=== PATIENT | female | born 1980 | race African-American/Black ===

== ENCOUNTER 2018-10-20 16:22 | Emergency (ER) | payer OTHER ==
--- NOTE | 2018-10-20 16:54 | PDOC ---
Rapid Medical Evaluation Time Seen by Provider: 10/20/18 16:54 Medical Evaluation: Allergies Allergy/AdvReac Type Severity Reaction Status Date / Time No Known Allergies Allergy Verified 10/20/18 16:53 10/20/18 16:54 Chief complaint: Weakness, near syncope. Dx with influenza, started Tamiflu Wednesday. Pertinent physical exam findings: Alert, oriented, no distress. Clear lungs. I have ordered the following: None. Patient will proceed to the ED for further evaluation. Discharge Disposition - Diagnosis Influenza - Referrals - Patient Instructions - Post Discharge Activity
[2018-10-20 16:56] VITALS: BP 123/76; TEMP 100.2
[2018-10-20] MEDS ORDERED: ACETAMINOPHEN 500 MG TABLET (FP) PO ONE (19:41)
[2018-10-20] MEDS ORDERED: DEXAMETHASONE 4 MG TABLET (FP) PO ONE (19:41)
--- NOTE | 2018-10-20 20:05 | PDOC ---
History of Present Illness - General Chief Complaint: Respiratory Stated Complaint: SORE THROAT Time Seen by Provider: 10/20/18 16:54 History Source: Patient Exam Limitations: No Limitations - History of Present Illness Initial Comments: 10/20/18 20:01 HISTORY OF PRESENT ILLNESS: 38-year-old woman past medical history presents emergency department for evaluation of flulike symptoms for the past 3 days. Patient was [facility] and [facility] was diagnosed with influenza and started on Tamiflu. Patient reports the sore throat is gotten worse she denies increased faculty swallowing. Patient denies any change in her voice. Patient reports difficult time swallowing and is result his only had liquid oral intake over the past 24 hours. She denies any nausea vomiting or diarrhea. No recent travel or sick contacts. PAST MEDICAL HISTORY: Denies past medical history SURGICAL HISTORY: Denies ALLERGIES: No known drug allergies REVIEW OF SYSTEMS General/Constitutional: +fever. Denies weakness, weight change. HEENT: Denies change in vision. Denies ear pain or discharge. +sore throat. Cardiovascular: Denies chest pain or shortness of breath. Respiratory: Moist productive cough. Denies wheezing, or hemoptysis. Gastrointestinal: Denies nausea, vomiting, diarrhea or constipation. Denies rectal bleeding. Genitourinary: Denies dysuria, frequency, or change in urination. Musculoskeletal: +myalgias. Denies neck or back pain. Skin and breasts: Denies rash or easy bruising. Neurologic: Denies headache, vertigo, loss of consciousness, or loss of sensation. Psychiatric: Denies depression or anxiety. Endocrine: Denies increased thirst. Denies abnormal weight change. Hematologic/Lymphatic: Denies anemia, easy bleeding, or history of blood clots. Allergic/Immunologic: Denies hives or skin allergy. Denies latex allergy. PHYSICAL EXAM General Appearance: Well-appearing, appropriately dressed. No apparent distress , no intoxication. HEENT: EOMI, PERRLA, normal voice, TMs retracted bilaterally. No conjunctival pallor. No photophobia, scleral icterus. Oropharynx erythematous without lesions (+)exudate. Cobblestoning noted in the posterior. No nasal discharge present. Neck: Supple. Trachea midline. No tenderness, rigidity, carotid bruit, stridor , or thyromegaly. Nontender anterior cervical lymphadenopathy present. Respiratory/Chest: Lungs CTAB. No shortness of breath, chest tenderness, respiratory distress, accessory muscle use. No crackles, rales, rhonchi, stridor , wheezing, dullness Cardiovascular: RRR. S1, S2. No JVD, murmur, bradycardia, tachycardia. Vascular Pulses: Dorsalis-Pedis (R): 2+, Dorsalis-Pedis (L): 2+ Gastrointestinal/Abdominal: Normal bowel sounds. Abdomen soft, non-distended. No tenderness or rebound tenderness. No organomegaly, pulsatile mass, guarding, hernia, hepatomegaly, splenomegaly. Musculoskeletal/Extremities: Normal inspection. FROM of all extremities, normal capillary refill. Pelvis Stable. No CVA tenderness. No tenderness to extremities, pedal edema, swelling, erythema or deformity. Integumentary: Appropriate color, dry, warm. 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 Fully oriented, alert. Appropriate mood/affect. Motor strength 5/5. No appreciable EOM palsy, facial droop or sensory deficit. Past History - Past Medical History Allergies/Adverse Reactions: Allergies Allergy/AdvReac Type Severity Reaction Status Date / Time No Known Allergies Allergy Verified 10/20/18 16:53 Home Medications: Ambulatory Orders Acetaminophen [Tylenol] 650 mg PO QID 10/20/18 Amoxicillin - [Amoxicillin 500mg Capsule -] 500 mg PO BID #20 capsule 10/20/18 Oseltamivir Phosphate [Tamiflu -] 75 mg PO BID 10/20/18 COPD: No - Surgical History Abdominal Surgery: Yes (HERNIA REPAIR, "tummy tuck") - Reproductive History (#): 4 Para: 3 Polycystic Ovaries: Yes Therapeutic (s) & number: Yes (x1) Spontaneous : 2 - Immunization History Immunization Up to Date: Yes - Suicide/Smoking/Psychosocial Hx Smoking Status: No Smoking History: Former smoker Have you smoked in the past 12 months: No Number of Cigarettes Smoked Daily: 0 Information on smoking cessation initiated: No Hx Alcohol Use: No Drug/Substance Use Hx: No Substance Use Type: None *Physical Exam - Vital Signs Last Vital Signs Temp Pulse Resp BP Pulse Ox 100.2 F H 130 H 22 H 123/76 100 10/20/18 16:54 10/20/18 16:54 10/20/18 16:54 10/20/18 16:54 10/20/18 16:54 Moderate Sedation - Procedure Monitoring Vital Signs: Procedure Monitoring Vital Signs Temperature 100.2 F H 10/20/18 16:54 Pulse Rate 130 H 10/20/18 16:54 Respiratory Rate 22 H 10/20/18 16:54 Blood Pressure 123/76 10/20/18 16:54 O2 Sat by Pulse Oximetry (%) 100 10/20/18 16:54 Medical Decision Making - Medical Decision Making 10/20/18 20:03 A/P: 38-year-old woman with 3 days of flulike symptoms Patchy exudates present on bilateral tonsils. Bilateral tonsils beefy red in appearance surrounding the exudate Cobblestoning noted in the posterior oropharynx Lungs clear to auscultation bilaterally Patient is mildly febrile tachycardic to 130. I'll give patient Tylenol and encourage oral fluids. As patient has patchy exudates present on bilateral tonsils [place] rapid strep testing to evaluate bacterial etiology. 10/20/18 20:42 Rapid strep testing is positive. This patient is on Tamiflu already I will add amoxicillin to continue to treat. Repeat heart rate 102. I discussed the physical exam findings, ancillary test results and final diagnoses with the patient. I answered all of the patient's questions. The patient was satisfied with the care received and felt comfortable with the discharge plan and treatment plan. The patient will call their primary care physician within 24 hours to arrange follow-up and will return to the Emergency Department with any new, persistent or worsening symptoms. *DC/Admit/Observation/Transfer Diagnosis at time of Disposition: Influenza, Streptococcal pharyngitis - Discharge Dispostion Disposition: HOME Condition at time of disposition: Fair Decision to Admit order: No - Prescriptions Prescriptions: Amoxicillin - [Amoxicillin 500mg Capsule -] 500 mg PO BID #20 capsule - Referrals Referrals: Radu Higgins MD [Primary Care Provider] - - Patient Instructions Printed Discharge Instructions: DI for Strep Throat Additional Instructions: Take amoxicillin as prescribed. Salt water garggles. Throw away your toothbrush in 3 days and start using a new toothbrush. No sharing of drinks, utensils or toothbrushes. 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 Return to ED for worsening fevers, worsening sore throat, chest pain, shortness of breath or any other concerns. - Post Discharge Activity Forms/Work/School Notes: Back to Work
[2018-10-20] MEDS ORDERED: ACETAMINOPHEN 325 MG TABLET (FP) ONE (20:20)
[2018-10-20] MEDS ORDERED: DEXAMETHASONE SOD PHOSPHATE 10 MG/1 ML VIAL ONE (20:21)
[2018-10-20 20:47] VITALS: PULSE 103
== END 2018-10-20 20:44 | disposition home or self-care (01) ==
LOC: JER 16:22
DX: J11.1 Influenza due to unidentified influenza virus with other respiratory manifestations (principal); J02.0 Streptococcal pharyngitis; B95.0 Streptococcus, group A, as the cause of diseases classified elsewhere
CPT/HCPCS: 84703; 87880; 99282-25

== ENCOUNTER 2019-03-13 21:37 | Emergency (ER) | payer OTHER | END 2019-03-14 01:17 | disposition home or self-care (01) | LOC: JER 03-14 01:17 | PROC: 3E03329 Introduction of Other Anti-infective into Peripheral Vein, Percutaneous Approach (ICD-10-PCS; principal; 2019-03-13) | PROC: 3E0333Z Introduction of Anti-inflammatory into Peripheral Vein, Percutaneous Approach (ICD-10-PCS; 2019-03-13) | DX: M62.838 Other muscle spasm (principal); V89.2XXD Person injured in unspecified motor-vehicle accident, traffic, subsequent encounter; J02.0 Streptococcal pharyngitis; B95.0 Streptococcus, group A, as the cause of diseases classified elsewhere ==